=== PATIENT | female | born 1990 | race Caucasian/White ===

== ENCOUNTER 2016-11-19 11:57 | Emergency (ER) | payer MEDICARE, OTHER ==
--- NOTE | 2016-11-19 12:37 | ERNOTE ---
Abdominal HPI - Narrative Date of Service: 11/19/16 - General Chief Complaint: Abdominal Pain Time Seen by Provider: 11/19/16 12:26 Source: patient Exam Limitations: no limitations - Immun/Allergies/Home Medications Immunizatons: IMMUNIZATION HX Immunizations Up to Date Yes History of Influenza Vaccine No Hx Pneumococcal Vaccination No Allergies/Adverse Reactions: Allergies amoxicillin trihydrate [From Augmentin] Allergy (Severe, Verified 11/19/16 12:06 ) rash azithromycin Allergy (Severe, Verified 11/19/16 12:06) rash cefaclor [From Ceclor] Allergy (Severe, Verified 11/19/16 12:06) rash cefprozil [From Cefzil] Allergy (Severe, Verified 11/19/16 12:06) rash Penicillins Allergy (Severe, Verified 11/19/16 12:06) Hives potassium clavula *RETIRED-06/08/13 [From Augmentin] Allergy (Severe, Verified 11/19/16 12:06) rash Home Medications: HOME MEDICATIONS Valproic Acid (As Sodium Salt) [Valproic Acid] 250 mg PO BID 10/06/12 [Last Taken Unknown] Ethinyl Estradiol/Drospirenone [Brigida 28 Tablet] 1 each PO DAILY 10/30/15 [Last Taken Unknown] Fluoxetine HCl [Prozac] 40 mg PO DAILY 08/25/16 [Last Taken Unknown] risperiDONE [Risperdal] 0.5 mg PO BID #60 tablet 08/25/16 [Last Taken Unknown] Levofloxacin [Levaquin] 750 mg PO DAILY #10 tab 11/19/16 [Last Taken Unknown] metroNIDAZOLE [Flagyl] 500 mg PO QID #40 tab 11/19/16 [Last Taken Unknown] - History of Present Illness Narrative: Pt. comes in with c/o LUQ pain and flank pain for three days. Pt. denies any SOB, CP, NVD, but does state that she has had problem recently with abdominal distention and had an upper GI endoscopy on Saturday for this. Pt. also states that she had a fever after her upper GI but it resolved. Pt. denies any alleviating or aggravating factors. Pt. denies any prehospital treatment. Review of Systems - Review of Systems Constitutional: Present: no symptoms reported. Absent: recent illness, fever, chills, weakness, fatigue, malaise EYE: Present: no symptoms reported ENT: Present: no symptoms reported Respiratory: Present: no symptoms reported. Absent: shortness of breath, cough , wheezing Cardiology: Present: no symptoms reported. Absent: chest pain, palpitations, edema Gastrointestinal/Abdominal: Present: abdominal pain. Absent: nausea, vomiting, diarrhea Genitourinary: Present: no symptoms reported. Absent: frequency, pain, dysuria , discharge Musculoskeletal: Present: back pain - L flank Skin: Present: no symptoms reported. Absent: rash, change in color Neurological: Present: no symptoms reported. Absent: headache, dizziness/light- headedness, numbness, tingling All Other Systems: All systems neg except as marked - Patient's Past Medical History Patient History - Medical: Depression, Seizures Patient History - Cardiac/Respiratory: No pertinent hx Patient History - Cancer: No Hx of Cancer Patient History - Surgical Procedures: Other - Social History Living Situations: parents Smoking Status: Never smoker Have you smoked in the past 12 months: No Do you dip or chew tobacco: No Alcohol Use: none Drug Use: none Physical Exam - Physical Exam General Appearance: Present: wd/wn, alert, no apparent distress Eye Exam: Normal inspection: bilateral, PERRL: bilateral, EOMI: bilateral Ears, Nose, Throat: Present: normal ENT inspection, hearing grossly normal, normal pharynx Neck: Present: normal inspection, nontender. Absent: lymphadenopathy (R), lymphadenopathy (L) Respiratory: Present: no respiratory distress, normal breath sounds, no accessory muscle use, chest nontender, lungs clear Cardiovascular/Chest: Present: regular rate, rhythm, no murmur, normal peripheral pulses Gastrointestinal/Abdominal: Present: normal bowel sounds, no organomegaly, tenderness - LUQ, distended. Absent: McBurney sign, Obturator sign, Godoy sign Back Exam: Present: normal range of motion, no vertebral tenderness, CVA tenderness (L) Extremity Exam: Present: normal inspection, non-tender, no edema, normal range of motion Neurological Exam: Present: alert, oriented, normal mood/affect, no motor/ sensory deficits, asset manager II-XII nml as tested, normal cerebellar test Skin Exam: Present: normal color, warm/dry. Absent: pallor, skin rash ED Progress - Results and Orders Patient's Lab Results:: I have reviewed the patient's lab results. - Vital Signs Patient's Vital Signs:: I have reviewed the patient's vital signs. Vital Signs: Vital Signs 11/19/16 12:03 Temperature 36.3 C L Pulse Rate 91 Respiratory 14 Rate Blood Pressure 124/66 O2 Sat by Pulse 98 Oximetry - CT/Ultrasound CT/Ultrasound Narrative: CT with findings of small bowel colitis and mesenteric adenitis - Progress/Reassessment Chief Complaint: Abdominal Pain Progress:: Unchanged Departure - Departure Clinical Impression: Acute mesenteric adenitis Regional enteritis of small bowel Qualifiers: Digestive disease complication type: unspecified complication Qualified Code(s) : K50.019 - Crohn's disease of small intestine with unspecified complications Disposition: Home self-care Condition: Good Instructions: Mesenteric Adenitis, Pediatric Additional Instructions: Please increase fluid intake and follow up with primary provider in 2-3 days. Prescriptions: Levofloxacin [Levaquin] 750 mg PO DAILY #10 tab metroNIDAZOLE [Flagyl] 500 mg PO QID #40 tab
[2016-11-19 12:42] LABS: Hematocrit 31.6 % (37.0-47.0); Hemoglobin 9.7 gm/dL (12.5-16.0); Mean Cell Volume 67.7 fl (78-100); Mean Corpuscular Hemoglobin 20.8 pg (27-31); Mean Corpuscular Hgb Conc 30.7 g/dl (32-36); Mean Platelet Volume 10.1 fl (6.0-9.5); Neutrophil # 4.9 K/mm3 (1.3-6.0); Platelet Count 306 K/mm3 (150-450); Red Blood Count 4.67 M/mm3 (4.2-5.4); Red Cell Distribution Width 16.7 % (11.5-14.0); White Blood Count 7.1 K/mm3 (4.0-10.5)
[2016-11-19 12:43] LABS: Urine Bilirubin Negative (NEGATIVE); Urine Ketone 5 mg/dL (NEGATIVE); Urine Nitrite Negative (NEGATIVE); Urine Protein Negative (NEGATIVE); Urine Specific Gravity 1.025 SP.GR. (1.005-1.010); Urine Urobilinogen Normal (NORMAL)
[2016-11-19 12:47] LABS: Urine Blood 10 /ul (NEGATIVE)
[2016-11-19 12:48] LABS: Urine Appearance Clear; Urine Color Yellow
[2016-11-19 12:49] LABS: Urine Bacteria TRACE; Urine RBC None Seen /hpf (0-5); Urine WBC 0-5 /hpf (0-5)
[2016-11-19 13:01] LABS: Albumin * 3.3 gm/dl (3.4-5.0); Anion Gap 17.3 mmol/L (6.8-13.8); BUN/Creatinine Ratio 17.4 (9.0-21.6); Bilirubin, Total 0.1 mg/dL (0.0-1.1); Ca. Corrected For Albumin 9.5 mg/dL (8.4-10.2); Calcium * 9.3 mg/dL (7.9-10.9); Potassium 4.3 mmol/L (3.4-4.6); Total Protein 6.5 gm/dL (6.2-8.2)
[2016-11-19 14:24] VITALS: BP 117/45
== END 2016-11-19 14:24 | disposition home or self-care (01) ==
LOC: ER 11:57
DX: K50.019 Crohn's disease of small intestine with unspecified complications (principal); I88.0 Nonspecific mesenteric lymphadenitis

== ENCOUNTER 2017-02-27 00:48 | Emergency (ER) | payer MEDICARE, OTHER ==
[2017-02-27] MEDS ORDERED: ONDANSETRON HCL/PF 2 MG/ML VIAL IV ONE ×2 (01:15→03:00)
[2017-02-27] MEDS ORDERED: NORMAL SALINE 1,000 ML IV ONE (01:16)
--- NOTE | 2017-02-27 01:24 | ERNOTE ---
Medical Problem HPI - General Chief Complaint: Nausea/Vomiting Time Seen by Provider: 02/27/17 01:08 Source: patient Exam Limitations: no limitations - Immun/Allergies/Home Medications Immunizations: IMMUNIZATION HX Immunizations Up to Date Yes History of Influenza Vaccine No Hx Pneumococcal Vaccination No Allergies/Adverse Reactions: Allergies amoxicillin trihydrate [From Augmentin] Allergy (Severe, Verified 11/19/16 12:06 ) rash azithromycin Allergy (Severe, Verified 11/19/16 12:06) rash cefaclor [From Ceclor] Allergy (Severe, Verified 11/19/16 12:06) rash cefprozil [From Cefzil] Allergy (Severe, Verified 11/19/16 12:06) rash Penicillins Allergy (Severe, Verified 11/19/16 12:06) Hives potassium clavula *RETIRED-06/08/13 [From Augmentin] Allergy (Severe, Verified 11/19/16 12:06) rash Home Medications: HOME MEDICATIONS Valproic Acid (As Sodium Salt) [Valproic Acid] 250 mg PO BID 10/06/12 [Last Taken Unknown] Ethinyl Estradiol/Drospirenone [Brigida 28 Tablet] 1 each PO DAILY 10/30/15 [Last Taken Unknown] risperiDONE [Risperdal] 0.5 mg PO BID #60 tablet 08/25/16 [Last Taken Unknown] Ondansetron HCl [Zofran] 1 - 2 mg PO Q8H PRN #10 tab 02/27/17 [Last Taken Unknown] - History of Present History Narrative: Pt has been having abdominal pain for the past few months. She has has CT and SB follow through without a definitive diagnosis. Vomiting tonight and unable to hold anything down Timing: intermittent Review of Systems - Review of Systems Constitutional: Present: no symptoms reported EYE: Present: no symptoms reported ENT: Present: no symptoms reported Respiratory: Present: no symptoms reported Cardiology: Present: no symptoms reported Gastrointestinal/Abdominal: Present: See HPI Genitourinary: Present: frequency Musculoskeletal: Present: no symptoms reported Skin: Present: no symptoms reported Neurological: Present: no symptoms reported Endocrine: Present: no symptoms reported Hematologic/Lymphatic: Present: no symptoms reported Psych: Present: no symptoms reported - Patient's Past Medical History Patient History - Medical: Anemia, Depression, Seizures, Other Patient History - Cardiac/Respiratory: No pertinent hx Patient History - Cancer: No Hx of Cancer Patient History - Surgical Procedures: Other Patient History - Other: None LMP (females 10-50): this week - Social History Living Situations: parents Abuse History: No History of abuse Psych History: Psychiatric Hx, Hx of Depression Smoking Status: Never smoker Alcohol Use: none Drug Use: none - Immunizations Immunizations Up to Date: Yes Hx Pneumococcal Vaccination: No History of Influenza Vaccine: No Physical Exam - Physical Exam General Appearance: Present: wd/wn, alert, mild distress Eye Exam: Normal inspection: bilateral Neck: Present: normal inspection, nontender Respiratory: Present: no respiratory distress, normal breath sounds Cardiovascular/Chest: Present: regular rate, rhythm, no murmur Gastrointestinal/Abdominal: Present: soft, tenderness - RUQ but not under the rib angle, abnormal bowel sounds - hyperactive throughout Back Exam: Present: normal inspection, normal range of motion, no CVA tenderness Extremity Exam: Present: normal inspection, normal range of motion Neurological Exam: Present: alert, oriented, normal mood/affect Skin Exam: Present: normal color, warm/dry ED Progress - Results and Orders Patient's Lab Results:: I have reviewed the patient's lab results. Results and Orders: Laboratory Tests 02/27/17 02/27/17 02/27/17 01:29 01:29 01:29 WBC 17.2 H Hgb 12.2 L Hct 38.2 Plt Count 372 Sodium 140 Potassium 3.5 Chloride 103 Carbon Dioxide 21.1 L Anion Gap 19.4 H BUN 13 Creatinine 0.78 Est GFR (Non-Af Amer) 96 BUN/Creatinine Ratio 16.7 Random Glucose 124 H Calcium 8.9 Total Bilirubin 0.1 AST 12 ALT 13 L Alkaline Phosphatase 88 Total Protein 6.9 Albumin 3.6 Amylase 74 Lipase 193 Serum HCG, Qual Negative - Vital Signs Patient's Vital Signs:: I have reviewed the patient's vital signs. Vital Signs: Vital Signs 02/27/17 00:55 Temperature 36.7 C Pulse Rate 118 H Respiratory 14 Rate Blood Pressure 118/67 O2 Sat by Pulse 97 Oximetry - X-Ray X-Ray #1 X-Ray: abdomen Interpretation: Interp. by me X-ray Comments: non-distended air throughout colon, non obstructive, no masses - CT/Ultrasound CT/Ultrasound Narrative: Several mildly distended loops of small bowel with wall thickening suggestive of enteritis. Otherwise normal - Progress/Reassessment Chief Complaint: Nausea/Vomiting Progress:: Unchanged Progress Note-Subjective: 02/27/17 03:03 discussed elevated WBC and getting a CT despite CT 3 months ago. Mom agrees with CT. Pt worried that she wont be able to tolerate the oral contrast. I offered second dose of ondansetron, pt reluctantly agrees with oral contrast Departure - Departure Clinical Impression: Viral gastroenteritis Disposition: Home Follow Up Needed Condition: Good Instructions: Viral Gastroenteritis, Adult, [id number] Additional Instructions: Return the stool specimen you collect to the ER or lab. Follow up with your regular doctor in 5-7 days. Referrals: Lucrecia Gary, [Primary Care Provider] - Prescriptions: Ondansetron HCl [Zofran] 1 - 2 mg PO Q8H PRN #10 tab PRN Reason: Nausea
[2017-02-27] MEDS ORDERED: ONDANSETRON HCL/PF 2 MG/ML VIAL ONE ×2 (01:26→03:01)
[2017-02-27 01:35] LABS: Hematocrit 38.2 % (37.0-47.0); Hemoglobin 12.2 gm/dL (12.5-16.0); Mean Cell Volume 69.5 fl (78-100); Mean Corpuscular Hemoglobin 22.2 pg (27-31); Mean Corpuscular Hgb Conc 31.9 g/dl (32-36); Mean Platelet Volume 10.5 fl (6.0-9.5); Platelet Count 372 K/mm3 (150-450); Red Cell Distribution Width 20.6 % (11.5-14.0); White Blood Count 17.2 K/mm3 (4.0-10.5)
[2017-02-27 01:40] LABS: Total Cells Counted 100
[2017-02-27 01:53] LABS: Albumin * 3.6 gm/dl (3.4-5.0); Anion Gap 19.4 mmol/L (6.8-13.8); BUN/Creatinine Ratio 16.7 (9.0-21.6); Bilirubin, Total 0.1 mg/dL (0.0-1.1); Ca. Corrected For Albumin 8.9 mg/dL (8.4-10.2); Calcium * 8.9 mg/dL (7.9-10.9); Carbon Dioxide 21.1 mmol/L (24-32.6); Potassium 3.5 mmol/L (3.4-4.6); Total Protein 6.9 gm/dL (6.2-8.2)
[2017-02-27 02:28] LABS: Band 1 % (0-2.0); Lymphocyte 14 % (20-51); Monocyte 10 % (0-9); Neutrophil 75 % (42-75); Neutrophil # 12.9 K/mm3 (1.3-6.0)
[2017-02-27 02:29] LABS: Platelet Estimate Normal (NORMAL)
[2017-02-27 02:30] LABS: RBC Morphology Normal (NORMAL)
[2017-02-27] MEDS ORDERED: DIATRIZOATE MEGLU/DIATRIZO SOD 30 ML BTL PO ONE (02:54)
[2017-02-27] MEDS ORDERED: DIATRIZOATE MEGLU/DIATRIZO SOD 30 ML BTL ONE (02:55)
--- OUTSIDE RECORDS SUMMARY | 2017-02-27 04:27 | XMS REPORT | Continuity of Care Document ---
:1990 Author Organization [facility] [place] [address] Care Team Providers Name Role Phone Araceli Roman Primary Care Provider [phone] Source Comments This disclosure is being made pursuant to the Rdio program and maynot contain all information available regarding this patient.[facility] [facility] Active Allergies and Adverse Reactions Allergen Noted Date Severity Reactions Comments Augmentin 06/10/2014 Low Rash Azithromycin 06/06/2014 Other (See Comments) Cefaclor 06/06/2014 Other (See Comments) Cefprozil 10/13/2015 Low Itching Other 06/06/2014 Other (See Comments) Penicillins 06/06/2014 Low Rash Ziprasidone Hcl 10/13/2015 Other (See Comments) Patient states that body went numb, shaking, and jerking Current Medications Be aware that medications may not be up to date as of this document. Alwaysverify current medications with the patient. Prescription Sig. Disp. Refills Start Date End Date Status risperiDONE Take 0.5 mg by Active (RISPERDAL) 0.5 MG mouth 2 (two) tablet times daily. LEVORA 0.15/30, 11 02/20/2016 Active 28, 0.15-30 MG-MCG per tablet drospirenone-ethin Take 1 tablet by Active yl estradiol (REDDY) mouth daily. 3-0.02 MG per tablet albuterol (PROAIR Inhale 2 puffs Active HFA;PROVENTIL into the lungs HFA;VENTOLIN HFA) every 6 (six) 108 (90 BASE) hours as needed MCG/ACT inhaler for Wheezing. albuterol Take 2.5 mg by Active (PROVENTIL) (2.5 nebulization MG/3ML) 0.083% every 6 (six) nebulizer solution hours as needed for Wheezing. HYDROcodone-acetam TK 1 T PO Q 6 H 0 03/09/2016 Active inophen (NORCO) PRN P 5-325 MG per tablet ibuprofen TK 1 T PO TID PRN 0 03/09/2016 Active (ADVIL,MOTRIN) 600 P MG tablet escitalopram 01/18/2016 Active (LEXAPRO) 10 MG tablet gentamicin 01/11/2016 Active (GARAMYCIN) 0.3 % ophthalmic solution neomycin-polymyxin 01/16/2016 Active -dexamethasone 3.5-96205-8.1 OINT pantoprazole Take 1 tablet by 30 tablet 10 03/28/2016 Active (PROTONIX) 40 MG mouth every 7 tablet morning before breakfast. BRINTELLIX 10 MG 05/02/2016 Active TABS tablet valproate Take 15mL by 1050 mL 0 01/21/2017 Active (DEPAKENE) 250 mouth in the MG/5ML syrup morning, 5mL in the afternoon and 15 mL in the evening. 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 Overview: Overview: consider CMT HEATHER BARRETT MD Encephalopathy 09/22/2010 Overview: Overview: static HEATHER BARRETT MD Encounter for long-term (current) use of other medications 01/06/2010 Overview: Overview: HEATHER BARRETT MD Convulsions (HCC) 01/06/2010 Overview: Overview: stable HEATHER BARRETT MD Most Recent Encounters Date Type Specialty Providers Description 02/22/2017 Refill Neurology Heather Barrett MD 01/31/2017 Data Import 01/21/2017 Refill Neurology Angela Cartwright CMA 01/18/2017 Refill Neurology Heather Barrett MD Immunizations Name Dates Previously Given Next Due DTP / HiB 05/12/1997,04/05/1993,02/25/1992,1991,1 MMR 05/12/1997,12/22/1992 OPV 05/12/1997,04/05/1993,1991,1991 Pneumococcal Polysaccharide-23 06/04/2016 Tdap 06/28/2005 Varicella 04/04/1994 Social History Tobacco Use Types Packs/Day Years Used Date Never Smoker Smokeless Tobacco: Never Used Alcohol Use Drinks/Week oz/Week Comments No Last Filed Vital Signs Vital Sign Reading Time Taken Blood Pressure 134/70 06/04/2016 11:07 AM CDT Pulse 100 06/04/2016 11:07 AM CDT Temperature 36.2 C (97.1 F) 02/24/2016 10:06 AM CDT Respiratory Rate 18 06/04/2016 11:07 AM CDT Height 1.6 m (5' 3") 05/16/2016 9:34 AM CDT Weight 53.978 kg (119 lb) 06/04/2016 11:07 AM CDT Body Mass Index 21.09 06/04/2016 11:07 AM CDT Oxygen Saturation - - Plan of Care Date Type Specialty Providers Description 04/18/2017 Appointment Neurology Heather Barrett MD [address] [place] [address] [address] [place] [address] [phone] (Fax) Health Maintenance Due Date Last Done Comments HPV Vaccine (9-26YO) (1 of 3 2002 - Female 3 Dose Series) Pap Smear 2012 Tetanus/Pertussis (2 - Td) 06/28/2015 06/28/2005, Additional history exists 05/12/1997, 04/05/1993 Influenza Immunization (#1) 2016 Results from Last 3 Months Not on file
--- OUTSIDE RECORDS SUMMARY | 2017-02-27 04:27 | XMS REPORT | Summary of Care ---
:1990 Author Organization [facility] Address [address] [place] [address] [address] [place] [address] Care Team Providers Name Role Phone Lucrecia Gary Shweta Primary Care Physician Encounter Date(s): 12/12/16 - 12/12/16 [facility] [address] [place] [address] [address] [place] [address]- Discharge Disposition: Discharged to Home or Self Care Attending Physician: TYLER Perez Vital Signs No data available for this section Problem List No data available for this section Allergies, Adverse Reactions, Alerts Substance Reaction Severity Status Augmentin rash Active azithromycin rash Severe Active Ceclor rash Active Cefzil rash Active penicillin rash Active Medications Cipro 500 mg/5 mL oral liquid 5 mL, Oral, q12hr, # 100 mL, 0 Refill(s), Start Date: 11/20/16 8:41:00 TOBACCO WEIGHER, Pharmacy: [facility] [id number] Start Date: 11/20/16 Stop Date: 11/23/16 Status: Discontinuedciprofloxacin 500 mg oral tablet 1 tab(s), Oral, q12hr, # 20 tab(s), 0 Refill(s), Start Date: 11/23/16 12:31:00 TOBACCO WEIGHER, Pharmacy: [facility] [id number] Start Date: 11/23/16 Stop Date: 12/03/16 Status: OrderedLevora 0.15 mg-30 mcg oral tablet 1 tab(s), Oral, Daily, 0 Refill(s), Start Date: 09/13/16 14:06:00 TOBACCO WEIGHER Start Date: 09/13/16 Status: Orderedmelatonin 3 mg oral tablet 1 tab(s), Oral, HS, PRN for insomnia, # 60 tab(s), 0 Refill(s), Start Date: 08/19 14:08:00 TOBACCO WEIGHER Start Date: 09/13/16 Status: OrderedmetroNIDAZOLE 500 mg oral tablet 1 tab(s), Oral, QID, # 21 tab(s), 0 Refill(s), Start Date: 11/20/16 9:25:00 TOBACCO WEIGHER Start Date: 11/20/16 Stop Date: 11/27/16 Status: Orderedondansetron 4 mg oral tablet 1 tab(s), Oral, q8hr interval, 0 Refill(s), Start Date: 09/13/16 14:05:00 TOBACCO WEIGHER Start Date: 09/13/16 Stop Date: 11/12/16 Status: Completedpantoprazole 40 mg oral delayed release tablet 1 tab(s), Oral, Daily, # 30 tab(s), 0 Refill(s), Start Date: 09/13/16 14:04:00 TOBACCO WEIGHER Start Date: 09/13/16 Status: OrderedReadi-Cat 2 oral suspension See Instructions, Oral ONETIME, # 2 bottles, 0 Refill(s), Start Date: 09/13/16 14:47:00 TOBACCO WEIGHER, Pharmacy: [facility] Special Instructions: Oral ONETIME Start Date: 09/13/16 Status: OrderedrisperiDONE 0.5 mg oral tablet 1 tab(s), Oral, BID, # 60 tab(s), 0 Refill(s), Start Date: 09/13/16 14:07:00 TOBACCO WEIGHER Start Date: 09/13/16 Status: Orderedvalproic acid 250 mg/5 mL oral syrup 5 mL, Oral, TID, # 1350 mL, 0 Refill(s), Start Date: 09/13/16 14:05:00 TOBACCO WEIGHER Start Date: 09/13/16 Status: OrderedZofran 4 mg oral tablet 1 tab(s), Oral, q8hr interval, PRN as needed for nausea/vomiting, # 30 tab(s), 0 Refill(s), Start Date: 12/05/16 15:32:00 TOBACCO WEIGHER, Pharmacy: [facility] [id number] Start Date: 12/05/16 Status: OrderedZofran 4 mg oral tablet 1 tab(s), Oral, q8hr interval, PRN as needed for nausea/vomiting, # 10 Tab-Dis, 0 Refill(s), Start Date: 11/14/16 16:15:00 TOBACCO WEIGHER, Pharmacy: [facility] [id number] Start Date: 11/14/16 Status: Ordered Results No data available for this section Immunizations No data available for this section Procedures Procedure Date Related Diagnosis Body Site Esophageal Dilation1 11/14/16 Eye surgery 1993 1auto-populated from documented surgical case Social History No data available for this section Assessment and Plan No data available for this section
--- OUTSIDE RECORDS SUMMARY | 2017-02-27 04:27 | XMS REPORT | Continuity of Care Document ---
:1990 Author Organization [facility] ([facility]) Address [address] [place] [address] Phone [phone] Care Team Providers Name Role Phone Araceli Roman Primary Care Provider [phone] Source Comments This disclosure is being made pursuant to the Care Everywhere program, applicable federal and state laws, and may not contain all informaitonavailable regarding this patient.[facility] ([facility]) Active Allergies and Adverse Reactions Allergen Noted Date Severity Reactions Comments Amoxicillin-Pot Clavulanate 04/11/2012 Unknown Azithromycin 04/11/2012 Unknown Cefaclor 04/11/2012 Unknown Cefprozil 04/11/2012 OTHER Penicillins 04/11/2012 Unknown Current Medications Prescription Sig. Disp. Refills Start Date End Date Status valproic acid 50 mg/mL Take 250 mg by Active syrup mouth 2 times daily. venlafaxine 37.5 mg XR Take 37.5 mg by Active capsule mouth daily. Noreth-Ethinyl Take by mouth. 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 Social History Tobacco Use Types Packs/Day Years Used Date Never Smoker Smokeless Tobacco: Never Used Last Filed Vital Signs Vital Sign Reading Time Taken Blood Pressure 114/56 02/17/2013 1:36 PM CDT Pulse 72 02/17/2013 1:36 PM CDT Temperature 37.4 C (99.3 F) 02/17/2013 1:36 PM CDT Respiratory Rate 17 04/11/2012 11:25 AM CDT Height 1.575 m (5' 2") 02/17/2013 1:36 PM CDT Weight 45.314 kg (99 lb 14.4 oz) 02/17/2013 1:36 PM CDT Body Mass Index 18.27 02/17/2013 1:36 PM CDT Oxygen Saturation - - Plan of Care Date Type Specialty Providers Description 03/27/2017 Appointment Psychiatry Mago Lim DO Chief Comp: Patient [address] [place] [address] [phone] (Fax) Health Maintenance Due Date Last Done Comments Hepatitis B Vaccine (1 of 3 - Primary Series) 1991 HPV Vaccine (1 of 3 - Female 3 Dose Series) 2002 Tdap Vaccine 2002 Cervical Cancer Screening 2009 Lipid Disorder Screening 2009 MMR Vaccine 2009 Td Vaccine 2009 Influenza Vaccine: Seasonal (Season Ended) 2017 Results from Last 3 Months Not on file
--- OUTSIDE RECORDS SUMMARY | 2017-02-27 04:27 | XMS REPORT | Summary of Care ---
:1990 Author Organization [facility] Address [address] [place] [address] [address] [place] [address] Care Team Providers Name Role Phone TuanLucrecia adan Shweta Primary Care Physician Encounter Date(s): 11/20/16 - 11/20/16 [facility] [address] [place] [address] [address] [place] [address]- Discharge Diagnosis: Abdominal bloating Discharge Diagnosis: Mesenteric adenitis Discharge Disposition: Discharged to Home or Self Care Attending Physician: TYLER Perez Referring Physician: Fletcher Mack DO Vital Signs Most recent to oldest [Reference Range]: 1 Peripheral Pulse Rate [60-100 bpm] 86 bpm (11/20/16 8:27 AM) Blood Pressure [90-130/60-90 mmHg] 127/71mmHg (11/20/16 8:27 AM) Mean Arterial Pressure, Cuff 90 mmHg (11/20/16 8:27 AM) Height/Length Measured 158 cm (11/20/16 8:27 AM) Weight Dosing 61.4 kg (11/20/16 8:27 AM) Weight Measured 61.4 kg (11/20/16 8:27 AM) BSA Measured 1.62 m2 (11/20/16 8:27 AM) Body Mass Index Measured 24.6 kg/m2 (11/20/16 8:27 AM) Problem List No data available for this section Allergies, Adverse Reactions, Alerts Substance Reaction Severity Status Augmentin rash Active azithromycin rash Severe Active Ceclor rash Active Cefzil rash Active penicillin rash Active Medications Cipro 500 mg/5 mL oral liquid 5 mL, Oral, q12hr, # 100 mL, 0 Refill(s), Start Date: 11/20/16 8:41:00 [employer], Pharmacy: [facility] [id number] Start Date: 11/20/16 Stop Date: 11/30/16 Status: OrderedLevora 0.15 mg-30 mcg oral tablet 1 tab(s), Oral, Daily, 0 Refill(s), Start Date: 09/13/16 14:06:00 [employer] Start Date: 09/13/16 Status: Orderedmelatonin 3 mg oral tablet 1 tab(s), Oral, HS, PRN for insomnia, # 60 tab(s), 0 Refill(s), Start Date: 08/19 14:08:00 [employer] Start Date: 09/13/16 Status: OrderedmetroNIDAZOLE 500 mg oral tablet 1 tab(s), Oral, QID, # 21 tab(s), 0 Refill(s), Start Date: 11/20/16 9:25:00 [employer] Start Date: 11/20/16 Stop Date: 11/27/16 Status: Orderedondansetron 4 mg oral tablet 1 tab(s), Oral, q8hr interval, 0 Refill(s), Start Date: 09/13/16 14:05:00 [employer] Start Date: 09/13/16 Stop Date: 11/12/16 Status: Completedpantoprazole 40 mg oral delayed release tablet 1 tab(s), Oral, Daily, # 30 tab(s), 0 Refill(s), Start Date: 09/13/16 14:04:00 [employer] Start Date: 09/13/16 Status: OrderedReadi-Cat 2 oral suspension See Instructions, Oral ONETIME, # 2 bottles, 0 Refill(s), Start Date: 09/13/16 14:47:00 [employer], Pharmacy: [facility] Start Date: 09/13/16 Status: OrderedrisperiDONE 0.5 mg oral tablet 1 tab(s), Oral, BID, # 60 tab(s), 0 Refill(s), Start Date: 09/13/16 14:07:00 [employer] Start Date: 09/13/16 Status: Orderedvalproic acid 250 mg/5 mL oral syrup 5 mL, Oral, TID, # 1350 mL, 0 Refill(s), Start Date: 09/13/16 14:05:00 [employer] Start Date: 11/10/16 Status: OrderedZofran 4 mg oral tablet 1 tab(s), Oral, q8hr interval, PRN as needed for nausea/vomiting, # 10 Tab-Dis, 0 Refill(s), Start Date: 11/14/16 16:15:00 [employer], Pharmacy: [facility] [id number] Start Date: 11/14/16 Status: Ordered Results No data available for this section Immunizations No data available for this section Procedures Procedure Date Related Diagnosis Body Site Esophageal Dilation1 11/14/16 Eye surgery 1993 1auto-populated from documented surgical case Social History No data available for this section Assessment and Plan No data available for this section
[2017-02-27 04:56] LABS: Urine Bilirubin Negative (NEGATIVE); Urine Blood 25 /ul (NEGATIVE); Urine Ketone Negative (NEGATIVE); Urine Nitrite Negative (NEGATIVE); Urine Protein Negative (NEGATIVE); Urine Urobilinogen Normal (NORMAL); Urine pH 5.5 pH (5.0-7.0)
[2017-02-27 05:09] LABS: Urine Appearance Clear; Urine Bacteria None Seen; Urine Color Yellow; Urine RBC 0-5 /hpf (0-5); Urine WBC None Seen /hpf (0-5)
[2017-02-27 05:14] LABS: Cocaine Ur Negative (NEGATIVE); Urine Barbiturate Negative (NEGATIVE); Urine Benzodiazepines Negative (NEGATIVE); Urine Opiates Negative (NEGATIVE); Urine PCP Negative (NEGATIVE); Urine THC Negative (NEGATIVE)
[2017-02-27 05:30] VITALS: BP 115/61
== END 2017-02-27 05:58 | disposition home or self-care (01) ==
LOC: ER 00:48
DX: A08.4 Viral intestinal infection, unspecified (principal); R56.9 Unspecified convulsions

== ENCOUNTER 2017-11-27 10:47 | Emergency (ER) | payer MEDICARE, MEDICAID ==
[2017-11-27] MEDS ORDERED: NORMAL SALINE 1,000 ML IV ONE (11:11)
--- NOTE | 2017-11-27 11:11 | ERNOTE ---
Chest Pain/Cardiac HPI Date of Service: 11/27/17 Chief Complaint: Chest Pain Time Seen by Provider: 11/27/17 10:59 Source: patient Exam Limitations: no limitations Immunizations: IMMUNIZATION HX Immunizations Up to Date Yes History of Influenza Vaccine No Hx Pneumococcal Vaccination No Allergies/Adverse Reactions: Allergies amoxicillin trihydrate [From Augmentin] Allergy (Severe, Verified 10/24/17 22:12 ) rash azithromycin Allergy (Severe, Verified 10/24/17 22:12) rash cefaclor [From Ceclor] Allergy (Severe, Verified 10/24/17 22:12) rash cefprozil [From Cefzil] Allergy (Severe, Verified 10/24/17 22:12) rash Penicillins Allergy (Severe, Verified 10/24/17 22:12) Hives potassium clavula *RETIRED-06/08/13 [From Augmentin] Allergy (Severe, Verified 10/24/17 22:12) rash Home Medications: HOME MEDICATIONS Valproic Acid (As Sodium Salt) [Valproic Acid] 250 mg PO BID 10/06/12 [Last Taken Unknown] Ethinyl Estradiol/Drospirenone [Brigida 28 Tablet] 1 each PO DAILY 10/30/15 [Last Taken Unknown] FLUoxetine HCL [Prozac] 20 mg PO DAILY 10/24/17 [Last Taken Unknown] Ondansetron HCl [Zofran] 4 mg PO Q8H PRN 10/24/17 [Last Taken Unknown] risperiDONE [Risperdal] 0.5 mg PO BID 11/27/17 [Last Taken Unknown] Narrative: Patient is a 27-year-old female who was sent to the emergency room for evaluation of her chest pain. She reports a 1 month history of chest pain that has been ongoing. She was seen today by primary care physician and was sent directly to the emergency room for further workup. She reports her chest pain is more burning on the sternal area. Chest pain is moderate in intensity with no palliative factors. She reports her chest pain is worse when she ambulates all walk up the stairs. Burning sensation. She has a history of gastroesophageal reflux disease and currently on ranitidine. She denies any coughing, sputum production, fever, chills, night sweats, dyspnea, leg swelling , headedness, dizziness, syncopal episode. Timing: constant Severity/Quality: moderate Location: central Review of Systems - Review of Systems Constitutional: Present: See HPI EYE: Present: see HPI ENT: Present: See HPI Respiratory: Present: See HPI Cardiology: Present: chest pain, palpitations Gastrointestinal/Abdominal: Present: See HPI Genitourinary: Present: See HPI Musculoskeletal: Present: See HPI Skin: Present: See HPI Neurological: Present: See HPI Endocrine: Present: See HPI Hematologic/Lymphatic: Present: See HPI Psych: Present: See HPI - Patient's Past Medical History Patient History - Medical: Anemia, Depression, Seizures, Other Patient History - Cardiac/Respiratory: No pertinent hx Patient History - Cancer: No Hx of Cancer Patient History - Surgical Procedures: No surgical history, Other Patient History - Other: None LMP (females 10-50): other - Social History Living Situations: parents Abuse History: No History of abuse Psych History: Psychiatric Hx, Hx of Depression, Current tx/ever been on anti- depressants or anti-anxiety meds Smoking Status: Never smoker Have you smoked in the past 12 months: No Do you dip or chew tobacco: No Alcohol Use: none Drug Use: none - Immunizations Immunizations Up to Date: Yes Hx Pneumococcal Vaccination: No History of Influenza Vaccine: No Physical Exam - Physical Exam General Appearance: Present: wd/wn, alert, no apparent distress Head Exam: Present: no evidence of injury, active bleeding Eye Exam: Normal inspection: bilateral, PERRL: bilateral, EOMI: bilateral Ears, Nose, Throat: Present: normal ENT inspection Neck: Present: normal inspection, nontender Respiratory: Present: no respiratory distress, normal breath sounds, no accessory muscle use Cardiovascular/Chest: Present: tachycardia, chest tenderness Gastrointestinal/Abdominal: Present: normal bowel sounds, nontender, nondistended Back Exam: Present: normal inspection, normal range of motion, no CVA tenderness Extremity Exam: Present: normal inspection Neurological Exam: Present: alert, oriented, normal mood/affect, no motor/ sensory deficits Skin Exam: Present: normal color, warm/dry ED Progress - Results and Orders Patient's Lab Results:: I have reviewed the patient's lab results. - Vital Signs Patient's Vital Signs:: I have reviewed the patient's vital signs. Vital Signs: Vital Signs 11/27/17 10:51 Temperature 36.7 C Pulse Rate 114 H Respiratory 17 Rate Blood Pressure 136/55 O2 Sat by Pulse 97 Oximetry - EKG EKG: other - sinus tachycardia - Progress/Reassessment Chief Complaint: Chest Pain Progress:: Re-examined Progress Note-Subjective: 11/27/17 13:54 Patient seen and admitted at emergency room. Upper arrival patient was noted to be tachycardic. She was started on a bolus of IV fluid Blood work reviewed and was essentially normal. CBC, CMP, d-dimer, troponin all within normal limits. Upon reassessing her vital signs are heart rate was in the mid 80s or so. Given her age I do think because of her chest pain is likely anxiety versus costochondritis Pressly given the tenderness upon palpation of the sternal area. Recommend patient to follow up with her primary care physician in 3-5 days. He medication may be readjusted. I also encouraged him to take ibuprofen every 6- 8 hours for pain control - Transfer of Care Expected Disposition: Discharge Departure Clinical Impression: Costochondritis, Chest pain of unknown etiology - Departure Disposition: Home self-care Condition: Stable Instructions: Chest Wall Pain, [id number] Print Language: Icelandic Additional Instructions: See progress note Referrals: Lucrecia Gary DO [Primary Care Provider] -
[2017-11-27 11:14] LABS: Hemoglobin 10.6 gm/dL (12.5-16.0); Mean Cell Volume 72.1 fl (78-100); Mean Corpuscular Hemoglobin 23.1 pg (27-31); Mean Corpuscular Hgb Conc 32.1 g/dl (32-36); Neutrophil % 60.7 % (42-75.0); Platelet Count 289 K/mm3 (150-450); Red Blood Count 4.58 M/mm3 (4.2-5.4); Red Cell Distribution Width 15.4 % (11.5-14.0); White Blood Count 6.6 K/mm3 (4.0-10.5)
[2017-11-27 11:32] LABS: Troponin I Less than 0.017 ng/ml (0.00-0.10)
[2017-11-27 11:38] LABS: ALT 16 U/L (19-67); AST 13 U/L (0-48); Albumin * 3.4 gm/dl (3.4-5.0); Alkaline Phosphatase * 87 U/L (50-170); Anion Gap 14.3 mmol/L (6.8-13.8); BUN/Creatinine Ratio 17.2 (9.0-21.6); Bilirubin, Total 0.2 mg/dL (0.0-1.1); Blood Urea Nitrogen 11 mg/dL (3-23); CK Total * 60 U/L (0-259); CKMB 1.6 ng/mL (0.0-9.0); Calcium * 8.8 mg/dL (7.9-10.9); Carbon Dioxide 23.5 mmol/L (24-32.6); Chloride 103 mmol/L (97-106); Glucose * 104 mg/dL (70-110); Potassium 3.8 mmol/L (3.4-4.6); Sodium 137 mmol/L (132-142); Total Protein 6.4 gm/dL (6.2-8.2)
[2017-11-27 13:30] VITALS: BP 109/58
== END 2017-11-27 14:07 | disposition home or self-care (01) ==
LOC: ER 10:47
DX: M94.0 Chondrocostal junction syndrome [Tietze] (principal); R07.89 Other chest pain; F32.9 Major depressive disorder, single episode, unspecified